=== PATIENT | female | born 1940 | race Two or more races ===

== ENCOUNTER 2020-06-03 14:55 | Emergency (ER) | payer MEDICARE, MEDICAID ==
[~2020-06-03] VITALS: Ht 157.5 cm; Wt 73.5 kg
[2020-06-03 21:26] VITALS: BP 141/75
== END 2020-06-03 22:34 | disposition home or self-care (01) ==
LOC: ER 15:15
DX: S00.03XA Contusion of scalp, initial encounter (principal); S09.90XA Unspecified injury of head, initial encounter; N39.0 Urinary tract infection, site not specified; E11.9 Type 2 diabetes mellitus without complications; W19.XXXA Unspecified fall, initial encounter; Y93.89 Activity, other specified; Y92.89 Other specified places as the place of occurrence of the external cause; Y99.8 Other external cause status
CPT/HCPCS: 70450; 70486

== ENCOUNTER 2021-03-19 09:57 | Emergency (ER) | payer MEDICARE, MEDICAID ==
[~2021-03-19] VITALS: Ht 160 cm; Wt 59.0 kg
[2021-03-19] MEDS ORDERED: ONDANSETRON ODT 4 MG TAB PO ONE (12:30)
[2021-03-19] MEDS ORDERED: HYDROcodone-ACET 5/325MG TAB PO ONE (12:30)
[2021-03-19 12:58] VITALS: BP 180/79
== END 2021-03-19 15:59 | disposition home or self-care (01) ==
LOC: ER 09:57
DX: S42.412A Displaced simple supracondylar fracture without intercondylar fracture of left humerus, initial encounter for closed fracture (principal); I10 Essential (primary) hypertension; E11.9 Type 2 diabetes mellitus without complications; W01.0XXA Fall on same level from slipping, tripping and stumbling without subsequent striking against object, initial encounter; Y93.89 Activity, other specified; Y92.89 Other specified places as the place of occurrence of the external cause; Y99.8 Other external cause status
CPT/HCPCS: 29105; 73070; 73090; 73100; 73200; 99284; Q0162

== ENCOUNTER 2021-08-30 08:49 | Inpatient (IN) | payer MEDICARE, MEDICAID ==
[~2021-08-30] VITALS: Ht 165.1 cm; Wt 59.0 kg
[2021-08-30] MEDS: POTASSIUM CHL 10MEQ/50ML 50 ML IV SCH ×6 (05:15→23:00)
[2021-08-30] MEDS ORDERED: SODIUM CHLORIDE 0.9% 1,000 ML IV ONE (10:15)
[2021-08-30] MEDS ORDERED: SODIUM CHLORIDE 0.9% 1,000 ML IVB ONE (10:15)
[2021-08-30 10:52] LABS: Hemoglobin 9.1 g/dL (12.2-16.2); Mean Corpuscular Hemoglobin 23.8 pg (28.0-32.0)
[2021-08-30 10:52] LABS: Urine Amorphous Crystal FEW /hpf (None Seen); Urine Bacteria MANY /hpf (None Seen); Urine Blood Negative /uL (Negative); Urine Hyaline Cast FEW /lpf (0 - 2); Urine Mucus FEW (None Seen); Urine Specific Gravity 1.016 (1.001-1.035); Urine WBC 18 /hpf (0 - 5)
[2021-08-30 10:57] LABS: Mean Corpuscular Hgb Conc. 31.3 g/dL (32.0-36.0); Red Blood Cells 3.82 10^6/uL (4.0-5.20); Red Cell Distribution Width 17.3 % (11.8-14.3); White Blood Cell 20.7 10^3/uL (4.4-10.8)
[2021-08-30 11:02] LABS: Basophils % (manual) 0 (0.0-2.0); Blast Cells 0; Eosinophils % (manual) 0 (0-7); Myelocytes % 0; Promyelocytes % 0; Reactive Lymphocytes 0
[2021-08-30 11:06] LABS: Albumin 1.8 g/dL (3.4-5.0); Calcium 9.1 mg/dL (8.5-10.1); INR 1.18 (0.9-1.15); Magnesium 2.2 mg/dL (1.6-2.6); Partial Thromboplastin Time 31.6 sec (23.6-33.0); Potassium 3.2 mmol/L (3.5-5.1)
[2021-08-30 11:08] LABS: Lactic Acid w/Reflex 3.8 mmol/L (0.4-2.0)
[2021-08-30 11:16] LABS: BUN/Creatinine Ratio 39.1; Bilirubin, Total 1.2 mg/dL (0.2-1.0)
[2021-08-30] MEDS ORDERED: cefTRIAXone 1GM/50ML D5W 50 ML IV ONE (11:30)
[2021-08-30 11:54] LABS: Band Neutrophils % (manual) 27; Lymphocytes % (manual) 4 (10.0-50.0); Metamyelocytes % 1; Monocytes % (manual) 1 (0-12)
[2021-08-30] MEDS ORDERED: POTASSIUM EFFERVESENT TAB 25 MEQ PO ONE (12:15)
[2021-08-30] MEDS ORDERED: INSULIN LANTUS (GLARGINE) 1 /0.01ml (100units/ml) SC ONE (12:30)
[2021-08-30] MEDS ORDERED: LACTATED RINGER'S 2,000 ML IV ONE (12:30)
[2021-08-30] MEDS ORDERED: DEXTROSE (50%) 50ML SYRG IV PRN (12:30)
[2021-08-30] MEDS ORDERED: SOD CHL 0.9%/ KCL 40MEQ 1,000 ML IV SCH (12:30)
[2021-08-30] MEDS ORDERED: SODIUM CHLORIDE 0.9% 1,000 ML IV SCH ×4 (12:30→18:30)
[2021-08-30] MEDS ORDERED: MORPHINE SULFATE INJECTION 2 MG/ML SYRG IV PRN ×2 (12:45→14:15)
[2021-08-30] MEDS ORDERED: NITROGLYCERIN 0.4 MG SL TAB SL PRN (12:45)
[2021-08-30 13:13] LABS: Basophils # (auto) 0 10 ^3/uL (0-0.2); Eosinophils # (auto) 0 10 ^3/uL (0-0.8); Hematocrit 29.2 % (36.0-46.0); Lymphocytes # (auto) 0.5 10 ^3/uL (0.4-5.4); Monocytes # (auto) 0.2 10 ^3/uL (0-1.3); Red Cell Distribution Width 16.8 % (11.8-14.3)
[2021-08-30 13:14] LABS: Basophils % (auto) 0.1 % (0.0-2.0); Eosinophils % (auto) 0.1 % (0.0-7.0); Hemoglobin 9.3 g/dL (12.2-16.2); Lymphocytes % (auto) 2.9 % (10.0-50.0); Mean Corpuscular Hemoglobin 23.7 pg (28.0-32.0); Mean Corpuscular Hgb Conc. 31.8 g/dL (32.0-36.0); Mean Corpuscular Volume 74.6 fL (80.0-100.0); Monocytes % (auto) 1.1 % (0.0-12.0); Neutrophils # (auto) 17.8 10 ^3/uL (1.6-8.6); Neutrophils % (auto) 95.8 % (37.0-80.0); Nucleated Red Blood Cells % 0.1 %; Red Blood Cells 3.91 10^6/uL (4.0-5.20)
[2021-08-30] MEDS: ACCU-CHEK COMFORT CURVE STRIP VI SCH ×4 (13:30→18:00)
[2021-08-30 13:31] LABS: Phosphorus 3.3 mg/dL (2.5-4.90)
[2021-08-30 13:35] LABS: BUN/Creatinine Ratio 39.3
[2021-08-30] MEDS ORDERED: SOD CHL 0.9%/ KCL 40MEQ 1,000 ML IV PRN (13:45)
[2021-08-30] MEDS ORDERED: SODIUM CHLORIDE 0.9% 3,000 ML IV ONE (13:45)
[2021-08-30] MEDS ORDERED: D5W/SOD CHLO 0.9% 1,000 ML IV PRN (13:45)
[2021-08-30] MEDS: InsuLIN R (HUMAN) 100 UNITS in SODIUM CHL 0.9% 99 ML IV SCH ×2 (13:54→21:22)
[2021-08-30 13:59] LABS: White Blood Cell 18.5 10^3/uL (4.4-10.8)
[2021-08-30] MEDS ORDERED: AZITHROMYCIN 500MG/ 250ML 250 ML IV ONE (14:15)
[2021-08-30] MEDS ORDERED: DOCUSATE SOD 100 MG CAP PO PRN (14:15)
[2021-08-30] MEDS ORDERED: IPRATROPIUM BROM 0.5 MG/2.5ML INH SOL NEB ONE (14:15)
[2021-08-30] MEDS ORDERED: hydrALAZINE HCL 20 MG/ML VL IV PRN (14:15)
[2021-08-30] MEDS ORDERED: IPRATROPIUM BROM 0.5 MG/2.5ML INH SOL NEB PRN (14:15)
[2021-08-30] MEDS ORDERED: HYDROcodone-ACET 5/325MG TAB PO PRN ×2 (14:15)
[2021-08-30] MEDS ORDERED: HYDROcodone-ACET 5/325MG TAB PO ONE (14:15)
[2021-08-30] MEDS ORDERED: LORazepam 0.5 MG TAB PO PRN (14:15)
[2021-08-30] MEDS ORDERED: ONDANSETRON HCL 4 MG/2 ML VIAL IV PRN (14:15)
[2021-08-30 14:26] VITALS: BP 130/49
[2021-08-30] MEDS ORDERED: IPRATROPIUM BROM 0.5 MG/2.5ML INH SOL NEB SCH (18:00)
[2021-08-30 19:45] LABS: BUN/Creatinine Ratio 39.8; Calcium 8.7 mg/dL (8.5-10.1); Potassium 3.1 mmol/L (3.5-5.1)
[2021-08-30] MEDS: ATORVASTATIN 20 MG TAB PO SCH (22:00)
[2021-08-31] MEDS ORDERED: POTASSIUM CHL 10MEQ/50ML 150 ML IV ONE (00:18)
[2021-08-31] MEDS: InsuLIN R (HUMAN) 100 UNITS in SODIUM CHL 0.9% 99 ML IV SCH (00:22)
[2021-08-31] MEDS: ACCU-CHEK COMFORT CURVE STRIP VI SCH ×8 (01:55→23:33)
[2021-08-31 02:22] LABS: Calcium 8.8 mg/dL (8.5-10.1); Potassium 3.7 mmol/L (3.5-5.1)
[2021-08-31] MEDS ORDERED: VANCOMYCIN PER PHARMACY 0 MG IV SCH (03:00)
[2021-08-31] MEDS: POTASSIUM CHL 10MEQ/50ML 50 ML IV SCH ×2 (03:00)
[2021-08-31] MEDS ORDERED: VANCOMYCIN 1GM/250ML 250 ML IV ONE ×2 (03:17→04:00)
[2021-08-31 06:35] LABS: Amphetamine Screen, Urine NEGATIVE (NEGATIVE); Barbiturate Scree,Urine NEGATIVE (NEGATIVE); Benzodiazephine Screen, Urine NEGATIVE (NEGATIVE); Cannabinoid Screen, Urine NEGATIVE (NEGATIVE); Cocaine Screen, Urine NEGATIVE (NEGATIVE); Opiate Scree,Urine NEGATIVE (NEGATIVE); Phencyclidine Screen, Urine NEGATIVE (NEGATIVE)
[2021-08-31 08:12] LABS: Basophils # (auto) 0 10 ^3/uL (0-0.2); Basophils % (auto) 0.1 % (0.0-2.0); Eosinophils # (auto) 0 10 ^3/uL (0-0.8); Eosinophils % (auto) 0.1 % (0.0-7.0); Hematocrit 29.2 % (36.0-46.0); Hemoglobin 9.4 g/dL (12.2-16.2); Lymphocytes # (auto) 0.4 10 ^3/uL (0.4-5.4); Lymphocytes % (auto) 3.2 % (10.0-50.0); Mean Corpuscular Hgb Conc. 32.2 g/dL (32.0-36.0); Monocytes # (auto) 0.2 10 ^3/uL (0-1.3); Monocytes % (auto) 1.4 % (0.0-12.0); Neutrophils # (auto) 12.4 10 ^3/uL (1.6-8.6); Neutrophils % (auto) 95.2 % (37.0-80.0); Nucleated Red Blood Cells % 0.5 %; Red Blood Cells 4.03 10^6/uL (4.0-5.20)
[2021-08-31 08:13] LABS: Mean Corpuscular Hemoglobin 23.4 pg (28.0-32.0); Mean Corpuscular Volume 72.5 fL (80.0-100.0)
[2021-08-31 08:27] LABS: Anion Gap 5 (5-15); Blood Urea Nitrogen 42 mg/dL (7-18); Calcium 8.4 mg/dL (8.5-10.1); Carbon Dioxide 23 mmol/L (21-32); Chloride 108 mmol/L (98-107); Glucose 229 mg/dL (74-106); Magnesium 1.8 mg/dL (1.6-2.6); Potassium 3.8 mmol/L (3.5-5.1); Sodium 136 mmol/L (136-145)
[2021-08-31 08:37] LABS: Alanine Aminotransferase 16 U/L (13-56); Albumin 1.4 g/dL (3.4-5.0); Alkaline Phosphatase 144 U/L (45-117); Aspartate Aminotransferase 32 U/L (15-37); BUN/Creatinine Ratio 55.3; Bilirubin, Total 0.8 mg/dL (0.2-1.0); Cholesterol 70 mg/dL (< 200); GFR African American 94 mL/min; GFR Non-African American 78 mL/min; HDL Cholesterol 8 mg/dL (40-59); Lipase 769 U/L (73-393); Phosphorus 1.2 mg/dL (2.5-4.90); Total Protein 5.3 g/dL (6.4-8.2); Triglycerides 155 mg/dL (< 150)
[2021-08-31 08:56] LABS: INR 1.18 (0.9-1.15); Partial Thromboplastin Time 27.4 sec (23.6-33.0)
[2021-08-31] MEDS ORDERED: cefTRIAXone 1GM/50ML D5W 50 ML IV SCH (09:00)
[2021-08-31 09:21] LABS: CRP High Sensitivity > 19.0 mg/dL (< 0.3)
[2021-08-31] MEDS ORDERED: INSULIN LANTUS (GLARGINE) 1 /0.01ml (100units/ml) SC SCH (10:00)
[2021-08-31] MEDS: AZITHROMYCIN 500MG/ 250ML 250 ML IV SCH (10:23)
[2021-08-31] MEDS ORDERED: DEXTROSE (50%) 50ML SYRG IV PRN (12:15)
[2021-08-31] MEDS ORDERED: POTASSIUM PHOSPHATE 26.4 MEQ in SODIUM CHL 0.9% 100 ML IV ONE (12:30)
[2021-08-31] MEDS ORDERED: IOHEXOL 350 MG/ML 100ML IJ ONE (12:39)
[2021-08-31] MEDS: PIPERACILLIN-TAZO 4.5GM 100 ML IV SCH ×2 (14:47→21:34)
[2021-08-31] MEDS: InsuLIN REG 1unit/0.01ml Soln (100units/ml) SC SCH ×3 (16:37→23:36)
[2021-08-31] MEDS: ATORVASTATIN 20 MG TAB PO SCH (21:27)
[2021-08-31] MEDS: ENOXAPARIN SOD 60 MG/0.6 ML SYRINGE SC SCH (21:34)
[2021-08-31] MEDS ORDERED: ENOXAPARIN SOD 100 MG/1 ML SYRINGE SC SCH (22:00)
[2021-09-01] MEDS: ACCU-CHEK COMFORT CURVE STRIP VI SCH ×5 (04:19→20:00)
[2021-09-01] MEDS: InsuLIN REG 1unit/0.01ml Soln (100units/ml) SC SCH ×5 (04:23→23:48)
[2021-09-01] MEDS ORDERED: VANCOMYCIN 1GM/250ML 250 ML IV SCH (05:00)
[2021-09-01] MEDS: PIPERACILLIN-TAZO 4.5GM 100 ML IV SCH ×2 (05:48→14:19)
[2021-09-01 07:23] LABS: Basophils # (auto) 0 10 ^3/uL (0-0.2); Basophils % (auto) 0.2 % (0.0-2.0); Eosinophils # (auto) 0 10 ^3/uL (0-0.8); Hemoglobin 8.8 g/dL (12.2-16.2); Lymphocytes # (auto) 0.5 10 ^3/uL (0.4-5.4); Monocytes # (auto) 0.1 10 ^3/uL (0-1.3); Neutrophils # (auto) 9.9 10 ^3/uL (1.6-8.6); White Blood Cell 10.5 10^3/uL (4.4-10.8)
[2021-09-01 07:24] LABS: Eosinophils % (auto) 0.1 % (0.0-7.0); Hematocrit 26.7 % (36.0-46.0); Lymphocytes % (auto) 4.7 % (10.0-50.0); Mean Corpuscular Hemoglobin 23.8 pg (28.0-32.0); Mean Corpuscular Hgb Conc. 32.8 g/dL (32.0-36.0); Monocytes % (auto) 0.9 % (0.0-12.0); Neutrophils % (auto) 94.1 % (37.0-80.0); Nucleated Red Blood Cells % 0.2 %; Red Blood Cells 3.68 10^6/uL (4.0-5.20)
[2021-09-01 07:26] LABS: Mean Corpuscular Volume 72.6 fL (80.0-100.0); Red Cell Distribution Width 17.4 % (11.8-14.3)
[2021-09-01 07:42] LABS: Albumin 1.3 g/dL (3.4-5.0); Calcium 8.1 mg/dL (8.5-10.1); Magnesium 1.6 mg/dL (1.6-2.6); Potassium 3.6 mmol/L (3.5-5.1)
[2021-09-01 07:43] LABS: Lactic Acid w/Reflex 2.8 mmol/L (0.4-2.0)
[2021-09-01 07:46] LABS: Bilirubin, Total 0.8 mg/dL (0.2-1.0); Phosphorus 2.1 mg/dL (2.5-4.90); Total Protein 5.3 g/dL (6.4-8.2)
[2021-09-01] MEDS ORDERED: SODIUM CHLORIDE 0.9% 1,000 ML IV SCH ×2 (09:30→22:45)
[2021-09-01] MEDS: AZITHROMYCIN 500MG/ 250ML 250 ML IV SCH (10:06)
[2021-09-01] MEDS: ENOXAPARIN SOD 60 MG/0.6 ML SYRINGE SC SCH (10:06)
[2021-09-01 11:45] LABS: Folate (Folic Acid) 5.78 ng/mL (5.38-24)
[2021-09-01] MEDS: FLUCONAZOLE 200MG/100ML 100 ML IV SCH ×2 (12:01→13:01)
[2021-09-01] MEDS ORDERED: SODIUM CHLORIDE 0.9% 1,000 ML IV ONE (12:45)
[2021-09-01 22:00] VITALS: BP 126/50
[2021-09-01] MEDS ORDERED: MORPHINE SULFATE INJECTION 2 MG/ML SYRG IV PRN ×2 (22:45)
[2021-09-01] MEDS ORDERED: LORazepam 0.5 MG TAB PO PRN (22:45)
[2021-09-01] MEDS ORDERED: DOCUSATE SOD 100 MG CAP PO PRN (22:45)
[2021-09-01] MEDS ORDERED: VANCOMYCIN PER PHARMACY 0 MG IV SCH (22:45)
[2021-09-01] MEDS ORDERED: SOD CHL 0.9%/ KCL 40MEQ 1,000 ML IV PRN (22:45)
[2021-09-01] MEDS ORDERED: IPRATROPIUM BROM 0.5 MG/2.5ML INH SOL NEB PRN (22:45)
[2021-09-01] MEDS ORDERED: DEXTROSE (50%) 50ML SYRG IV PRN (22:45)
[2021-09-01] MEDS ORDERED: HYDROcodone-ACET 5/325MG TAB PO PRN (22:45)
[2021-09-01] MEDS ORDERED: ONDANSETRON HCL 4 MG/2 ML VIAL IV PRN (22:45)
[2021-09-01] MEDS ORDERED: hydrALAZINE HCL 20 MG/ML VL IV PRN (22:45)
[2021-09-01] MEDS ORDERED: NITROGLYCERIN 0.4 MG SL TAB SL PRN (22:45)
[2021-09-02] MEDS ORDERED: ACCU-CHEK COMFORT CURVE STRIP VI SCH
[2021-09-02] MEDS ORDERED: MORPHINE SULFATE INJECTION 2 MG/ML SYRG IV PRN ×2 (00:45→01:00)
[2021-09-02] MEDS ORDERED: DOCUSATE SOD 100 MG CAP PO PRN (01:00)
[2021-09-02] MEDS ORDERED: VANCOMYCIN PER PHARMACY 0 MG IV SCH (01:00)
[2021-09-02] MEDS ORDERED: NITROGLYCERIN 0.4 MG SL TAB SL PRN (01:00)
[2021-09-02] MEDS ORDERED: ONDANSETRON HCL 4 MG/2 ML VIAL IV PRN (01:00)
[2021-09-02] MEDS ORDERED: hydrALAZINE HCL 20 MG/ML VL IV PRN (01:00)
[2021-09-02] MEDS: PIPERACILLIN-TAZO 4.5GM 100 ML IV SCH ×3 (01:00→17:03)
[2021-09-02] MEDS: ENOXAPARIN SOD 60 MG/0.6 ML SYRINGE SC SCH ×2 (01:00→09:31)
[2021-09-02] MEDS ORDERED: DEXTROSE (50%) 50ML SYRG IV PRN (01:00)
[2021-09-02] MEDS ORDERED: ATORVASTATIN 20 MG TAB PO SCH ×2 (01:00→22:00)
[2021-09-02] MEDS ORDERED: IPRATROPIUM BROM 0.5 MG/2.5ML INH SOL NEB PRN (01:00)
[2021-09-02] MEDS ORDERED: LORazepam 0.5 MG TAB PO PRN (01:00)
[2021-09-02] MEDS: SODIUM CHLORIDE 0.9% 1,000 ML IV SCH ×2 (01:00→14:20)
[2021-09-02] MEDS ORDERED: SOD CHL 0.9%/ KCL 40MEQ 1,000 ML IV PRN (01:00)
[2021-09-02] MEDS ORDERED: HYDROcodone-ACET 5/325MG TAB PO PRN (01:00)
[2021-09-02] MEDS: InsuLIN REG 1unit/0.01ml Soln (100units/ml) SC SCH ×5 (04:00→20:00)
[2021-09-02] MEDS: ACCU-CHEK COMFORT CURVE STRIP VI SCH ×5 (04:00→20:00)
[2021-09-02 05:00] VITALS: BP 118/38
[2021-09-02] MEDS ORDERED: VANCOMYCIN 1GM/250ML 250 ML IV SCH ×2 (05:00)
[2021-09-02] MEDS ORDERED: PIPERACILLIN-TAZO 4.5GM 100 ML IV SCH (06:00)
[2021-09-02] MEDS ORDERED: ENOXAPARIN SOD 60 MG/0.6 ML SYRINGE SC SCH (10:00)
[2021-09-02] MEDS ORDERED: AZITHROMYCIN 500MG/ 250ML 250 ML IV SCH ×2 (10:00)
[2021-09-02] MEDS ORDERED: FLUCONAZOLE 200MG/100ML 100 ML IV SCH ×2 (12:00)
[2021-09-02] MEDS: FLUCONAZOLE 200MG/100ML 100 ML IV SCH ×2 (12:23→16:15)
[2021-09-02 15:20] VITALS: BP 155/55
== END 2021-09-02 21:15 | disposition short-term general hospital (02) | DRG 871 ==
LOC: ER 08:49 → OVERFLOW 12:48 → UNDODISIN 09-01 17:45 → TELE-WESTW 09-01 17:54
PROVIDERS: ADMIT Hospitalist; ATTEND Internal Medicine
PROC: 05HA33Z Insertion of Infusion Device into Left Brachial Vein, Percutaneous Approach (ICD-10-PCS; principal; 2021-08-30)
PROC: B54NZZA Ultrasonography of Left Upper Extremity Veins, Guidance (ICD-10-PCS; 2021-08-30)
DX: A41.9 Sepsis, unspecified organism (principal); E11.10 Type 2 diabetes mellitus with ketoacidosis without coma; E43 Unspecified severe protein-calorie malnutrition; J18.9 Pneumonia, unspecified organism; J96.01 Acute respiratory failure with hypoxia; I50.33 Acute on chronic diastolic (congestive) heart failure; G92.8 Other toxic encephalopathy; L03.221 Cellulitis of neck; N39.0 Urinary tract infection, site not specified; I13.0 Hypertensive heart and chronic kidney disease with heart failure and stage 1 through stage 4 chronic kidney disease, or unspecified chronic kidney disease; L02.11 Cutaneous abscess of neck; N17.9 Acute kidney failure, unspecified; I82.411 Acute embolism and thrombosis of right femoral vein; D50.0 Iron deficiency anemia secondary to blood loss (chronic); E87.6 Hypokalemia; E11.21 Type 2 diabetes mellitus with diabetic nephropathy; F03.90 Unspecified dementia, unspecified severity, without behavioral disturbance, psychotic disturbance, mood disturbance, and anxiety; L02.13 Carbuncle of neck; E11.22 Type 2 diabetes mellitus with diabetic chronic kidney disease; E78.5 Hyperlipidemia, unspecified; Z20.822 Contact with and (suspected) exposure to COVID-19; N18.32 Chronic kidney disease, stage 3b; Z83.3 Family history of diabetes mellitus; Z68.21 Body mass index [BMI] 21.0-21.9, adult; Z91.14 Patient's other noncompliance with medication regimen; Z91.19 Patient's noncompliance with other medical treatment and regimen; Z79.84 Long term (current) use of oral hypoglycemic drugs
CPT/HCPCS: 36415; 36600; 70450; 70490; 71045; 71260; 74177; 80048; 80053; 80061; 80307; 81001; 82010; 82270; 82607; 82728; 82746; 82805; 82962; 83036; 83605; 83615; 83690; 83735; 83880; 83930; 84100; 84439; 84443; 84484; 85007; 85025; 85027; 85379; 85610; 85652; 85730; 86141; 87040; 87070; 87077; 87086; 87186; 87205; 87426; 93005; 93306; 93970; 96361; 96365; 96372; 99291; G0378; J0696; J1450; J1815; J2543; J7042